=== PATIENT | male | born 1975 | race Caucasian/White ===

== ENCOUNTER 2018-04-16 15:03 | Inpatient (IN) | payer MEDICAID ==
[~2018-04-16] VITALS: Ht 188 cm; Wt 90.8 kg
[2018-04-16] MEDS ORDERED: NEUROPATHY MED PO (15:14)
[2018-04-16] MEDS ORDERED: KETOROLAC TROMETHAMINE 30 MG/ML VIAL IVP ONE (16:15)
[2018-04-16 16:35] LABS: HEMATOCRIT 37.2 % (41-53); MEAN CORPUSCULAR HEMOGLOBIN 38.3 pg (26.0-34.0); MEAN CORPUSCULAR VOLUME 109 fL (80-100); RED CELL DISTRIBUTION WIDTH 15.3 % (11.5-14.5)
[2018-04-16 16:59] LABS: CALCIUM, TOTAL 9.1 mg/dL (8.8-10.5); CREATININE 2.25 mg/dL (0.60-1.30); POTASSIUM 4.3 mmol/L (3.5-5.1)
[2018-04-16] MEDS ORDERED: SODIUM CHLORIDE 3% 500 ML IV ONE (17:15)
[2018-04-16 17:24] LABS: ALBUMIN 1.7 g/dL (3.4-5.0); TOTAL PROTEIN, SERUM 6.3 g/dL (6.4-8.2)
[2018-04-16 17:28] LABS: BILIRUBIN,TOTAL 32.2 mg/dL (0.1-1.0)
[2018-04-16] MEDS ORDERED: SODIUM CHLORIDE 3% IV ONE (17:30)
[2018-04-16] MEDS ORDERED: ALBUMIN HUMAN 25%-50GM/200ML 200 ML IV ONE (17:45)
[2018-04-16] MEDS ORDERED: ONDANSETRON HCL 4 MG/2 ML VIAL IVP ONE (17:45)
[2018-04-16] MEDS ORDERED: MORPHINE SULFATE 4 MG/ML SYRINGE IVP ONE (17:45)
[2018-04-16 18:08] LABS: PLATELET COUNT (AUTO) 213 K/uL (150-450)
[2018-04-16 18:12] LABS: BAND NEUTROPHILS % (MANUAL) 20 % (0-5); LYMPHOCYTES % (MANUAL) 6 % (22-44); MONOCYTES % (MANUAL) 11 % (2-9); SEGMENTED NEUTROPHILS % 63 % (40-70)
[2018-04-16] MEDS ORDERED: CefTRIAXone 1 GM/DEXTROSE 50 ML IV ONE (18:15)
[2018-04-16] MEDS ORDERED: ACETAMINOPHEN 325 MG TABLET PO PRN (18:30)
[2018-04-16] MEDS ORDERED: ONDANSETRON HCL 4 MG/2 ML VIAL IVP PRN ×2 (18:30→22:15)
[2018-04-16] MEDS ORDERED: 0.9% SODIUM CHLORIDE 10 ML SYRINGE IVP PRN (18:30)
[2018-04-16 19:05] LABS: LACTIC ACID 3.6 mmol/L (0.4-2.0)
[2018-04-16 19:36] LABS: SITE, BLOOD GAS LFT RADIAL; SOURCE, BLOOD GAS ARTERIAL
[2018-04-16 19:37] LABS: ABG A-A DIFF O2 180.7 mmHg (10-20.0); ABG BASE EXCESS 5.4 mmol/L (-2.0-3.0); ABG HCO3 29.1 mmol/L (22.0-26.0); ABG METHEMOGLOBIN 0.3 % (0.0-1.5); ABG OXYGEN CONTENT 14.2 mL/dL (15.0-23.0); ABG OXYGEN SATURATION 92.1 % (95.0-98.0); ABG PCO2 36 mmHg (35-45); ABG TOTAL HEMOGLOBIN 11.2 G/dL (12.0-18.0); TEMPERATURE, FAHRENHEIT, BG 98.6 FAHREN (96.0-98.6)
[2018-04-16 19:38] LABS: O2 DEVICE,BLOOD GAS CANNULA (ROOM AIR)
[2018-04-16] MEDS: SODIUM CHLORIDE 3% 500 ML IV SCH ×2 (19:38→19:54)
[2018-04-16] MEDS ORDERED: ZOLPIDEM TARTRATE 5 MG TABLET PO PRN (22:15)
[2018-04-16] MEDS: MORPHINE SULFATE 4 MG/ML SYRINGE IVP PRN (22:30)
[2018-04-16 22:33] LABS: CALCIUM, TOTAL 8.6 mg/dL (8.8-10.5); CREATININE 2.31 mg/dL (0.60-1.30); POTASSIUM 4.5 mmol/L (3.5-5.1)
[2018-04-16 22:57] LABS: INR 1.8 (0.9-1.1); PROTHROMBIN TIME 18.9 SEC (9.4-11.6)
[2018-04-17] VITALS (7 sets, daily range): BP systolic 96–109; BP diastolic 51–60
[2018-04-17] MEDS: ALBUMIN HUMAN 25%-25GM/100ML 100 ML IV SCH ×4 (00:38→18:02)
[2018-04-17 02:47] LABS: CALCIUM, TOTAL 8.4 mg/dL (8.8-10.5); CREATININE 2.53 mg/dL (0.60-1.30); POTASSIUM 4.9 mmol/L (3.5-5.1)
[2018-04-17 04:29] LABS: HEMATOCRIT 26.7 % (41-53); HEMOGLOBIN 9.6 g/dL (13.5-17.5); MEAN CORPUSCULAR HEMOGLOBIN 39.3 pg (26.0-34.0); MEAN CORPUSCULAR HGB CONC 35.9 G/dL (31.0-37.0); MEAN CORPUSCULAR VOLUME 109 fL (80-100); PLATELET COUNT (AUTO) 133 K/uL (150-450); RED BLOOD CELL COUNT(AUTO) 2.44 MIL/uL (4.50-5.90); RED CELL DISTRIBUTION WIDTH 14.9 % (11.5-14.5)
[2018-04-17 04:39] LABS: INR 1.9 (0.9-1.1); PROTHROMBIN TIME 19.8 SEC (9.4-11.6)
[2018-04-17 05:09] LABS: BAND NEUTROPHILS % (MANUAL) 22 % (0-5); LYMPHOCYTES % (MANUAL) 3 % (22-44); MONOCYTES % (MANUAL) 7 % (2-9); PLATELET MORPHOLOGY COMMENT GIANT PLTS PRESENT; SEGMENTED NEUTROPHILS % 68 % (40-70)
[2018-04-17 05:32] LABS: ALBUMIN 2.3 g/dL (3.4-5.0); CALCIUM, TOTAL 8.3 mg/dL (8.8-10.5); CREATININE 2.59 mg/dL (0.60-1.30); MAGNESIUM 1.9 mg/dL (1.80-2.40); PHOSPHORUS 3.6 mg/dL (2.5-4.9); POTASSIUM 4.6 mmol/L (3.5-5.1); THYROID STIMULATING HORMONE 0.43 uIU/mL (0.36-3.74); TOTAL PROTEIN, SERUM 4.8 g/dL (6.4-8.2)
[2018-04-17 05:33] LABS: BILIRUBIN,TOTAL 28.1 mg/dL (0.1-1.0)
[2018-04-17 07:39] LABS: CALCIUM, TOTAL 8.3 mg/dL (8.8-10.5); CREATININE 2.65 mg/dL (0.60-1.30); POTASSIUM 4.8 mmol/L (3.5-5.1)
[2018-04-17] MEDS: MORPHINE SULFATE 4 MG/ML SYRINGE IVP PRN ×2 (09:53→20:37)
[2018-04-17] MEDS: PANTOPRAZOLE SODIUM 40 MG DR TABLET PO SCH ×2 (09:53→20:37)
[2018-04-17] MEDS: SODIUM CHLORIDE 3% 500 ML IV SCH ×2 (09:57→19:00)
[2018-04-17 11:31] LABS: CREATININE,URINE RANDOM 136.6 mg/dL (30.0-125.0); OSMOLALITY,URINE 310 mOS/kg (50-1200); SODIUM,URINE RANDOM 20 mmol/l (20-110); UREA NITROGEN,URINE RANDOM 247 mg/dL (350-1000)
[2018-04-17 11:36] LABS: APPEARANCE,URINE CLOUDY (CLEAR); GLUCOSE, URINE (UA) NEGATIVE (NEGATIVE); KETONES,URINE TRACE mg/dL (NEGATIVE); LEUKOCYTE ESTERASE ,URINE SMALL (NEGATIVE); NITRATE,URINE POSITIVE (NEGATIVE); OCCULT BLOOD,URINE NEGATIVE (NEGATIVE); PROTEIN,URINE NEGATIVE (NEGATIVE)
[2018-04-17 11:53] LABS: CALCIUM, TOTAL 8.4 mg/dL (8.8-10.5); CREATININE 2.86 mg/dL (0.60-1.30); POTASSIUM 4.9 mmol/L (3.5-5.1)
[2018-04-17 11:57] LABS: BILIRUBIN,URINE PRELIM. POSITIVE (NEGATIVE)
[2018-04-17 12:00] LABS: BACTERIA,URINE Moderate /HPF (None Seen); COARSE GRANULAR CASTS,URINE 0-2 /LPF (None Seen); FINE GRANULAR CASTS,URINE 0-2 /LPF (None Seen); HYALINE CASTS, URINE 0-2 /LPF (None Seen); SQUAMOUS EPITHELIAL CELL,UR Moderate /LPF (None Seen)
[2018-04-17 16:16] LABS: CALCIUM, TOTAL 8.8 mg/dL (8.8-10.5); CREATININE 2.98 mg/dL (0.60-1.30); POTASSIUM 4.7 mmol/L (3.5-5.1)
[2018-04-17 20:26] LABS: CALCIUM, TOTAL 8.8 mg/dL (8.8-10.5); CREATININE 3.12 mg/dL (0.60-1.30); POTASSIUM 4.5 mmol/L (3.5-5.1)
[2018-04-17] MEDS ORDERED: LORazepam 2 MG/ML VIAL IVP PRN (21:15)
[2018-04-17] MEDS ORDERED: LORazepam 2 MG/ML VIAL ONE (21:19)
[2018-04-18] VITALS (7 sets, daily range): BP systolic 99–154; BP diastolic 54–74
[2018-04-18] MEDS: ALBUMIN HUMAN 25%-25GM/100ML 100 ML IV SCH ×3 (00:02→10:15)
[2018-04-18 00:05] LABS: CALCIUM, TOTAL 8.6 mg/dL (8.8-10.5); CREATININE 3.12 mg/dL (0.60-1.30); POTASSIUM 4.5 mmol/L (3.5-5.1)
[2018-04-18] MEDS: ChlordiazePOXIDE HCL 10 MG CAPSULE PO SCH ×4 (00:21→23:10)
[2018-04-18] MEDS: LORazepam 2 MG/ML VIAL IVP PRN ×2 (01:00→07:48)
[2018-04-18 05:08] LABS: HEMATOCRIT 24.4 % (41-53); HEMOGLOBIN 8.7 g/dL (13.5-17.5); MEAN CORPUSCULAR HEMOGLOBIN 39.9 pg (26.0-34.0); MEAN CORPUSCULAR HGB CONC 35.6 G/dL (31.0-37.0); MEAN CORPUSCULAR VOLUME 112 fL (80-100); PLATELET COUNT (AUTO) 128 K/uL (150-450); RED BLOOD CELL COUNT(AUTO) 2.18 MIL/uL (4.50-5.90); RED CELL DISTRIBUTION WIDTH 15.3 % (11.5-14.5)
[2018-04-18 05:33] LABS: ALBUMIN 3.1 g/dL (3.4-5.0); CALCIUM, TOTAL 8.8 mg/dL (8.8-10.5); CREATININE 3.21 mg/dL (0.60-1.30); POTASSIUM 4.3 mmol/L (3.5-5.1); TOTAL PROTEIN, SERUM 5.3 g/dL (6.4-8.2)
[2018-04-18 05:35] LABS: BILIRUBIN,TOTAL 30.8 mg/dL (0.1-1.0)
[2018-04-18 05:58] LABS: BAND NEUTROPHILS % (MANUAL) 4 % (0-5); LYMPHOCYTES % (MANUAL) 12 % (22-44); MONOCYTES % (MANUAL) 4 % (2-9); SEGMENTED NEUTROPHILS % 80 % (40-70)
[2018-04-18] MEDS: PANTOPRAZOLE SODIUM 40 MG DR TABLET PO SCH ×2 (07:48→21:11)
[2018-04-18] MEDS: RIFAXIMIN 550 MG TABLET PO SCH ×2 (13:43→21:11)
[2018-04-18] MEDS: MIDODRINE HCL 2.5 MG TABLET PO SCH ×2 (15:09→21:11)
[2018-04-18] MEDS: OCTREOTIDE ACETATE 100 MCG/ML VIAL SQ SCH (21:12)
[2018-04-19 03:50] VITALS: BP 103/48
[2018-04-19 05:29] LABS: GLUCOMETER DEV NAME(LOC) 5N.1; GLUCOSE,POINT OF CARE 83 MG/DL (70-110)
[2018-04-19 07:35] VITALS: BP 110/41
[2018-04-19] MEDS: MIDODRINE HCL 2.5 MG TABLET PO SCH ×3 (08:23→21:07)
[2018-04-19] MEDS: PANTOPRAZOLE SODIUM 40 MG DR TABLET PO SCH ×2 (08:23→21:07)
[2018-04-19] MEDS: ChlordiazePOXIDE HCL 10 MG CAPSULE PO SCH ×2 (08:23→15:39)
[2018-04-19] MEDS: RIFAXIMIN 550 MG TABLET PO SCH ×2 (08:24→21:07)
[2018-04-19 08:44] LABS: BASOPHILS % (AUTO) 0.6 % (0.0-2.0); EOSINOPHILS % (AUTO) 0.7 % (1.0-6.0); HEMATOCRIT 24.2 % (41-53); HEMOGLOBIN 8.8 g/dL (13.5-17.5); LYMPHOCYTES # (AUTO) 1.4 K/uL (1.0-4.8); LYMPHOCYTES % (AUTO) 8.4 % (22.0-44.0); MEAN CORPUSCULAR HEMOGLOBIN 40.8 pg (26.0-34.0); MEAN CORPUSCULAR HGB CONC 36.2 G/dL (31.0-37.0); MEAN CORPUSCULAR VOLUME 113 fL (80-100); MONOCYTES # (AUTO) 1.7 K/uL (0.1-1.0); MONOCYTES % (AUTO) 10.7 % (2.0-9.0); NEUTROPHILS # (AUTO) 12.9 K/uL (1.8-7.7); NEUTROPHILS % (AUTO) 79.6 % (40.0-70.0); PLATELET COUNT (AUTO) 127 K/uL (150-450); RED BLOOD CELL COUNT(AUTO) 2.15 MIL/uL (4.50-5.90); RED CELL DISTRIBUTION WIDTH 15.6 % (11.5-14.5)
[2018-04-19 08:59] LABS: CALCIUM, TOTAL 8.9 mg/dL (8.8-10.5); CREATININE 3.8 mg/dL (0.60-1.30); POTASSIUM 4.4 mmol/L (3.5-5.1)
[2018-04-19 09:03] LABS: MAGNESIUM 2.3 mg/dL (1.80-2.40); PHOSPHORUS 3.9 mg/dL (2.5-4.9)
[2018-04-19] MEDS ORDERED: SODIUM CHLORIDE 0.9% 100 ML ONE (10:20)
[2018-04-19] MEDS: OCTREOTIDE ACETATE 100 MCG/ML VIAL SQ SCH ×2 (10:35→21:10)
[2018-04-19] MEDS: CefTRIAXone SODIUM 2 GM in DEXTROSE 5%-WATER 50 ML IV SCH (10:35)
[2018-04-19 11:17] LABS: CALCIUM, TOTAL 8.8 mg/dL (8.8-10.5); CREATININE 3.5 mg/dL (0.60-1.30); POTASSIUM 4.4 mmol/L (3.5-5.1)
[2018-04-19 11:31] LABS: ALBUMIN 2.7 g/dL (3.4-5.0); TOTAL PROTEIN, SERUM 4.9 g/dL (6.4-8.2)
[2018-04-19 11:32] LABS: BILIRUBIN,TOTAL 32.5 mg/dL (0.1-1.0)
[2018-04-19 12:07] VITALS: BP 107/53
[2018-04-19] MEDS ORDERED: MAGNESIUM SULFATE 2 GM, MVI, ADULT NO.1 WITH VIT K 10 ML, THIAMINE HCL 100 MG, FOLIC AC... IV ONE ×5 (13:00)
[2018-04-19] MEDS: ALBUMIN HUMAN 25%-25GM/100ML 100 ML IV SCH (13:12)
[2018-04-19] MEDS: PrednisoLONE 15 MG/5 ML SOLUTION UDCUP PO SCH (15:38)
[2018-04-19 15:39] VITALS: BP 112/59
[2018-04-19 19:15] LABS: CALCIUM, TOTAL 8.7 mg/dL (8.8-10.5); CREATININE 3.7 mg/dL (0.60-1.30); POTASSIUM 4.4 mmol/L (3.5-5.1)
[2018-04-19 21:12] VITALS: BP 101/51
[2018-04-20] MEDS: ChlordiazePOXIDE HCL 10 MG CAPSULE PO SCH ×3 (00:43→16:36)
[2018-04-20 00:48] VITALS: BP 116/60
[2018-04-20 05:52] LABS: HEMATOCRIT 24.2 % (41-53); HEMOGLOBIN 8.4 g/dL (13.5-17.5); MEAN CORPUSCULAR HEMOGLOBIN 39.5 pg (26.0-34.0); MEAN CORPUSCULAR HGB CONC 34.8 G/dL (31.0-37.0); MEAN CORPUSCULAR VOLUME 113 fL (80-100); PLATELET COUNT (AUTO) 112 K/uL (150-450); RED BLOOD CELL COUNT(AUTO) 2.13 MIL/uL (4.50-5.90); RED CELL DISTRIBUTION WIDTH 15.7 % (11.5-14.5)
[2018-04-20 06:20] LABS: ALBUMIN 2.6 g/dL (3.4-5.0); CALCIUM, TOTAL 8.9 mg/dL (8.8-10.5); CREATININE 3.91 mg/dL (0.60-1.30); MAGNESIUM 2.9 mg/dL (1.80-2.40); POTASSIUM 5.1 mmol/L (3.5-5.1); TOTAL PROTEIN, SERUM 4.9 g/dL (6.4-8.2)
[2018-04-20 06:21] LABS: BILIRUBIN,TOTAL 32.3 mg/dL (0.1-1.0)
[2018-04-20 07:47] LABS: BAND NEUTROPHILS % (MANUAL) 5 % (0-5); LYMPHOCYTES % (MANUAL) 10 % (22-44); MONOCYTES % (MANUAL) 6 % (2-9); SEGMENTED NEUTROPHILS % 79 % (40-70)
[2018-04-20 08:08] VITALS: BP 110/62
[2018-04-20] MEDS: CefTRIAXone SODIUM 2 GM in DEXTROSE 5%-WATER 50 ML IV SCH (08:57)
[2018-04-20] MEDS: PrednisoLONE 15 MG/5 ML SOLUTION UDCUP PO SCH (09:19)
[2018-04-20] MEDS: RIFAXIMIN 550 MG TABLET PO SCH (09:19)
[2018-04-20] MEDS: MIDODRINE HCL 2.5 MG TABLET PO SCH ×2 (09:19→16:35)
[2018-04-20] MEDS: PANTOPRAZOLE SODIUM 40 MG DR TABLET PO SCH (09:19)
[2018-04-20] MEDS: OCTREOTIDE ACETATE 100 MCG/ML VIAL SQ SCH (09:23)
[2018-04-20 10:18] LABS: INR 1.7 (0.9-1.1); PROTHROMBIN TIME 17.4 SEC (9.4-11.6)
[2018-04-20] MEDS: ALBUMIN HUMAN 25%-25GM/100ML 100 ML IV SCH (10:28)
[2018-04-20 11:06] VITALS: BP 109/59
[2018-04-20 12:12] VITALS: BP 101/51
[2018-04-20] MEDS ORDERED: ACETAMINOPHEN 325 MG TABLET PO PRN (13:00)
[2018-04-20 14:34] LABS: GLUCOMETER DEV NAME(LOC) 5N.1; GLUCOSE,POINT OF CARE 120 MG/DL (70-110)
[2018-04-20] MEDS ORDERED: BUPR1PAT3 TD (14:44)
[2018-04-20] MEDS ORDERED: TAPE100T2 PO (14:44)
[2018-04-20] MEDS ORDERED: BUPRENORPHINE TD SCH (15:00)
[2018-04-20] MEDS ORDERED: *PATIENT'S OWN MED [ENTER DRUG, DOSE, FREQUENCY IN COMMENTS] CLINICAL ONE ×2 (15:15)
[2018-04-20] MEDS ORDERED: BUPRENORPHINE 20 MCG/HR TD SCH (16:00)
[2018-04-20] MEDS ORDERED: TAPENTADOL 100 MG PO SCH (16:00)
[2018-04-20 16:55] VITALS: BP 105/62
== END 2018-04-20 19:00 | disposition short-term general hospital (02) | DRG 280 ==
LOC: EMS 15:04 → ICU 20:00 → UNDOADMIN 20:00 → 5N 04-18 16:05
PROVIDERS: ADMIT Internal Medicine; ATTEND Internal Medicine
PROC: 05HY33Z Insertion of Infusion Device into Upper Vein, Percutaneous Approach (ICD-10-PCS; principal; 2018-04-17)
PROC: B54MZZA Ultrasonography of Right Upper Extremity Veins, Guidance (ICD-10-PCS; 2018-04-17)
DX: K70.31 Alcoholic cirrhosis of liver with ascites (principal); J96.00 Acute respiratory failure, unspecified whether with hypoxia or hypercapnia; K76.7 Hepatorenal syndrome; N17.9 Acute kidney failure, unspecified; K65.2 Spontaneous bacterial peritonitis; D68.9 Coagulation defect, unspecified; K76.6 Portal hypertension; E87.1 Hypo-osmolality and hyponatremia; F17.210 Nicotine dependence, cigarettes, uncomplicated; K72.90 Hepatic failure, unspecified without coma; D64.9 Anemia, unspecified; N39.0 Urinary tract infection, site not specified; Z88.6 Allergy status to analgesic agent
CPT/HCPCS: 36245; 36569; 76770; 76937; 82533; 82570; 82805; 83605; 83735; 83935; 84100; 84300; 84443; 84540; 87040; 87081; 87086; 93005; 99291; G0378; J0696; J1885; J2060; J2270; J2354; J2405; J3411; J3475; J3490; J7030; J7050; J7060; J7510; P9046